=== PATIENT | female | born 2000 | race African-American/Black ===

== ENCOUNTER 2025-04-08 08:03 | Inpatient (IN) ==
[2025-04-08] MEDS ORDERED: OXYTOCIN 30 UNITS/NSS 30 UNITS/500 ML BAG IV PRN ×2 (08:19→19:51)
[2025-04-08] MEDS ORDERED: ACETAMINOPHEN 325 MG TAB PO PRN (08:19)
[2025-04-08] MEDS ORDERED: LIDOCAINE 1% LOCAL 20 ML VIAL INFIL PRN (08:19)
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
[2025-04-08] MEDS: PENICILLIN GK 6 MU in DEXTROSE 5% 250 ML IV STA (08:59)
[2025-04-08] MEDS: OXYTOCIN 30 UNITS/NSS 30 UNITS/500 ML BAG IV PRN (08:59)
[2025-04-08] MEDS: LACTATED RINGER'S 1,000 ML IV PRN (08:59)
[2025-04-08 09:34] LABS: Hematocrit (blood only) 32.1 % (37.0-47.0); Hemoglobin 10.6 g/dl (12.0-16.0); Mean Corpuscular Hemoglobin 28.0 pg (25.0-34.0); Mean Corpuscular Volume 84.7 fL (80.0-100.0); Platelet Count 254 K/uL (130-400); RDW Standard Deviation 43.7 fL (36.4-46.3); Red Blood Count 3.79 M/uL (4.20-5.40); White Blood Count 8.10 K/ul (4.8-10.8)
[2025-04-08] MEDS ORDERED: LIDOCAINE 2% MPF LOCAL 5 ML VIAL EPI PRN (09:54)
[2025-04-08] MEDS ORDERED: ONDANSETRON INJ 2 MG/ML 2 ML VIAL IV PRN (09:54)
[2025-04-08] MEDS ORDERED: NALBUPHINE HCL INJ 10 MG/ML AMP IV PRN (09:54)
[2025-04-08] MEDS ORDERED: NALOXONE HCL 0.4 MG/1 ML VIAL/CARP IV PRN (09:54)
[2025-04-08] MEDS ORDERED: NALOXONE HCL 1 MG in SODIUM CHLORIDE 0.9% 1,000 ML IV PRN (09:54)
[2025-04-08] MEDS ORDERED: PROMETHAZINE 6.25 MG/50.25 ML BAG IV PRN (09:54)
[2025-04-08] MEDS ORDERED: BUPIVACAINE 0.25% PF 30 ML VIAL EPI PRN (09:54)
[2025-04-08] MEDS ORDERED: SODIUM CHLORIDE 0.9% PF INJ 10 ML VIAL EPI PRN (09:54)
[2025-04-08] MEDS ORDERED: ROPIVACAINE 0.5% PF 5 MG/ML 20 ML VIAL EPI PRN (09:54)
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
[2025-04-08 10:08] LABS: Amphetamines+Metham, Urine Neg (Neg); MDMA (Ecstacy), Urine Neg (Neg); Marijuana, Urine Pos (Neg)
[2025-04-08] MEDS: fentANYL 2 MCG/ML BUPIVacaine 0.125%-NSS 100ML BAG ONE (10:18)
[2025-04-08] MEDS: LIDOCAINE 2%/EPINEPHRINE 1:200,000 20 ML PF ONE (10:19)
[2025-04-08] MEDS: BUPIVACAINE 0.25% PF 30 ML VIAL ONE (10:19)
[2025-04-08] MEDS: SODIUM CHLORIDE 0.9% PF INJ 10 ML VIAL ONE (10:19)
[2025-04-08 10:22] LABS: Treponema pallidum RflxConfirm Negative (Negative)
[2025-04-08 10:27] LABS: Hep C Ab Rflx HepCQuant RNA Negative (Negative)
[2025-04-08] MEDS: BUPIVACAINE 0.25% PF 30 ML VIAL EPI STA (10:33)
[2025-04-08] MEDS: SODIUM CHLORIDE 0.9% PF INJ 10 ML VIAL EPI STA (10:33)
[2025-04-08] MEDS: LIDOCAINE 2%/EPINEPHRINE 1:200,000 20 ML PF EPI STA (10:33)
--- NOTE | 2025-04-08 11:16 | Labor Progress Brief Note ---
Date of Service April 08, 2025 Subjective comfortable with epidural, still anxious with exam Assessment & Plan (1) Poor patient attendance of care: (2) with 41 completed weeks gestation: Plan coontinue current management. fetus category one. monitor for arom Admission and Anticipated Discharge Date Admission Date: April 08, 2025 Physical Exam Physical Exam: cx--/-2 attempt at arom, not sure successful toco--q2-3min efm--130s wtih mod variability, accels to 170s, no decels Results & Data Vital Signs (Past 12 Hours) Vital Signs Temp Pulse Resp BP Pulse Ox Pulse Ox O2 Del Method 04/08/25 11:12 98 04/08/25 11:12 81 04/08/25 11:12 82 93 04/08/25 11:11 83 132/82 04/08/25 11:07 83 98 04/08/25 11:06 87 92 04/08/25 11:02 88 100 04/08/25 11:00 86 92 04/08/25 10:57 89 100 04/08/25 10:54 91 H 88 L 04/08/25 10:52 90 74 L 04/08/25 10:48 88 92 04/08/25 10:47 94 H 85 L 04/08/25 10:42 92 04/08/25 10:42 94 H 04/08/25 10:42 97 H 116/66 93 04/08/25 10:37 91 04/08/25 10:37 90 04/08/25 10:37 83 87 L 04/08/25 10:32 81 100 04/08/25 10:30 18 04/08/25 10:30 18 04/08/25 10:30 18 04/08/25 10:27 82 100 04/08/25 10:26 88 117/56 L 04/08/25 10:25 84 122/58 L 04/08/25 10:22 88 109/63 100 04/08/25 10:20 90 114/65 04/08/25 10:19 83 117/66 88 L 04/08/25 10:18 100 Room Air 04/08/25 10:17 93 H 114/56 L 100 04/08/25 09:55 86 113/62 04/08/25 08:14 36.7 C 18 04/08/25 08:12 36.7 C 18 04/08/25 08:12 36.7 C 94 H 18 114/71 Coding Level of Care Code None Diagnoses Poor patient attendance of care O09.30 with 41 completed weeks gestation O48.0; Z3A.41
[2025-04-08] MEDS: PENICILLIN GK 3 MU in DEXTROSE 5% 100 ML IV PRN (12:41)
--- NOTE | 2025-04-08 15:38 | Labor Progress Brief Note ---
Date of Service April 08, 2025 Subjective comfortable Assessment & Plan (1) with 41 completed weeks gestation: (2) Group B streptococcal infection during : Plan continue current management. fetus reassuring category two. Admission and Anticipated Discharge Date Admission Date: April 08, 2025 Physical Exam Physical Exam: cx--4/100/-2 toco--q1-2 min efm--130s with mod variability, accels present, early/variable with contractions. Results & Data Vital Signs (Past 12 Hours) Vital Signs Temp Pulse Resp BP Pulse Ox Pulse Ox O2 Del Method 04/08/25 15:33 77 93 04/08/25 15:31 76 100 04/08/25 15:27 81 124/61 04/08/25 15:14 84 88 L 04/08/25 15:11 83 117/62 04/08/25 15:10 89 100 04/08/25 15:05 81 96 04/08/25 15:00 80 100 04/08/25 14:58 75 93 04/08/25 14:55 76 97 04/08/25 14:51 72 94 04/08/25 14:50 74 99 04/08/25 14:46 78 88 L 04/08/25 14:45 83 100 04/08/25 14:42 91 H 134/71 04/08/25 14:40 79 99 04/08/25 14:34 71 89 L 04/08/25 14:32 76 100 04/08/25 14:30 18 04/08/25 14:30 18 04/08/25 14:27 87 86 L 04/08/25 14:22 94 H 89 L 04/08/25 14:20 88 100 04/08/25 14:15 80 95 04/08/25 14:12 75 124/63 94 04/08/25 14:10 88 100 04/08/25 14:00 36.7 C 04/08/25 13:58 79 65 L 04/08/25 13:57 83 128/76 04/08/25 13:54 80 90 04/08/25 13:53 81 98 04/08/25 13:44 85 89 L 04/08/25 13:42 95 H 119/61 04/08/25 13:41 75 100 04/08/25 13:38 88 92 04/08/25 13:36 81 100 04/08/25 13:32 87 92 04/08/25 13:31 89 98 04/08/25 13:30 18 04/08/25 13:30 18 04/08/25 13:27 93 H 112/77 04/08/25 13:23 85 83 L 04/08/25 13:19 83 93 04/08/25 13:15 82 84 L 04/08/25 13:12 83 43 L 04/08/25 13:11 104 H 111/73 04/08/25 13:08 78 97 04/08/25 13:07 84 51 L 04/08/25 13:02 100 04/08/25 13:02 90 04/08/25 13:02 86 93 04/08/25 12:57 97 04/08/25 12:57 78 04/08/25 12:57 80 108/72 94 04/08/25 12:52 78 92 04/08/25 12:47 83 77 L 04/08/25 12:45 86 83 L 04/08/25 12:42 69 100 04/08/25 12:41 85 107/62 04/08/25 12:37 82 100 04/08/25 12:36 85 43 L 04/08/25 12:32 82 76 L 04/08/25 12:30 18 04/08/25 12:30 18 04/08/25 12:27 100 04/08/25 12:27 79 04/08/25 12:27 80 107/56 L 04/08/25 12:26 81 89 L 04/08/25 12:22 90 56 L 04/08/25 12:21 92 H 93 04/08/25 12:17 87 100 04/08/25 12:12 84 92 04/08/25 12:07 83 100 04/08/25 12:04 103 H 91 04/08/25 12:02 89 100 04/08/25 11:57 87 100 04/08/25 11:56 83 122/63 04/08/25 11:52 85 100 04/08/25 11:51 82 90 04/08/25 11:47 82 100 04/08/25 11:45 36.8 C 04/08/25 11:43 93 H 115/56 L 04/08/25 11:42 85 100 04/08/25 11:40 85 92 04/08/25 11:37 87 94 04/08/25 11:34 90 93 04/08/25 11:32 91 H 100 04/08/25 11:30 18 04/08/25 11:30 18 04/08/25 11:29 92 H 91 04/08/25 11:27 87 97 04/08/25 11:22 77 100 04/08/25 11:19 86 93 04/08/25 11:17 92 H 100 04/08/25 11:12 98 04/08/25 11:12 81 04/08/25 11:12 82 93 04/08/25 11:11 83 132/82 04/08/25 11:07 83 98 04/08/25 11:06 87 92 04/08/25 11:02 88 100 04/08/25 11:00 86 92 04/08/25 10:57 89 100 04/08/25 10:54 91 H 88 L 04/08/25 10:52 90 74 L 04/08/25 10:48 88 92 04/08/25 10:47 94 H 85 L 04/08/25 10:42 92 04/08/25 10:42 94 H 04/08/25 10:42 97 H 116/66 93 04/08/25 10:37 91 04/08/25 10:37 90 04/08/25 10:37 83 87 L 04/08/25 10:32 81 100 04/08/25 10:30 18 04/08/25 10:30 18 04/08/25 10:30 18 04/08/25 10:27 82 100 04/08/25 10:26 88 117/56 L 04/08/25 10:25 84 122/58 L 04/08/25 10:22 88 109/63 100 04/08/25 10:20 90 114/65 04/08/25 10:19 83 117/66 88 L 04/08/25 10:18 100 Room Air 04/08/25 10:17 93 H 114/56 L 100 04/08/25 09:55 86 113/62 04/08/25 08:14 36.7 C 18 04/08/25 08:12 36.7 C 18 04/08/25 08:12 36.7 C 94 H 18 114/71 Coding Level of Care Code None Diagnoses with 41 completed weeks gestation O48.0; Z3A.41 Group B streptococcal infection during O98.819; B95.1
[2025-04-08] MEDS: diphenhydrAMINE 50 MG/ML VIAL IV PRN (17:48)
[2025-04-08] MEDS: fentANYL 2 MCG/ML BUPIVacaine 0.125%-NSS 100ML BAG EPI PRN (19:00)
--- NOTE | 2025-04-08 19:42 | Anesthesia Procedure Note ---
Date of Service April 08, 2025 Anesthesia Post Epidural Note Vital Signs Vital Signs: Temp Pulse Resp BP Pulse Ox O2 Del Method 36.8 C 77 18 128/75 87 L Room Air 04/08/25 17:45 04/08/25 19:17 04/08/25 17:45 04/08/25 19:17 04/08/25 18:28 04/08/25 10:18 Notes Mental Status: alert / awake / arousable Nausea / Vomiting: adequately controlled Pain: adequately controlled Airway Patency, RR, SpO2: stable & adequate BP & HR: stable & adequate Hydration State: stable & adequate Neuraxial Anesthesia: was administered and sensory block is resolving Anesthetic Complications: no major complications apparent and Pt Satisfied with anesthetic care Epidural: Removed without complications and With tip intact
[2025-04-08] MEDS ORDERED: BENZOCAINE 20% SPRY 85 APPLN/85 GM CAN EXT PRN (19:51)
[2025-04-08] MEDS ORDERED: DIPHTHER/TETAN/PERTUS Vaccine (Tdap, Adol/Adult) 0.5mL IM ONE (19:51)
[2025-04-08] MEDS ORDERED: HYDROCORTISONE ACETATE 25 MG SUPP PR PRN (19:51)
--- NOTE | 2025-04-08 19:51 | Delivery Summary ---
Vaginal Delivery Summary Date of Service April 08, 2025 Vaginal Delivery Summary Pre-operative Diagnosis: at 41 weeks poor pnc MJ use Post-operative Diagnosis: same Procedure: pitocin iol epidural arom QBL: 105cc Anesthesia: epidural Procedure: Patient presented for iol. Got pitocin, epidural and then arom for clear fluid. The patient progressed to c/c/+2. The patient pushed to deliver a viable female in emma position. The rest of the infant was then delivered without difficulty through a nuchal cord. The baby was vigorous. The nose and mouth were again bulb suctioned and the infant was placed in the maternal abdomen for drying and attention. Cord was clamped and cut at one minute of life. Cord blood and segment obtained. Placenta delivered spontaneous, intact with a three vessel cord. Cervix/sulci/rectum/perineum were intact. Hemostasis obtained with dilute pitocin and fundal massage. Apgars were 8/9. Mother and baby doing well at the end of the delivery. [facility] Vaginal Delivery Charge Delivery Type Details:
[2025-04-08] MEDS: IBUPROFEN 600 MG TAB PO ONE (19:52)
[2025-04-08] MEDS: DOCUSATE SODIUM 100 MG CAP PO SCH (20:45)
[2025-04-08] MEDS: ACETAMINOPHEN 325 MG TAB PO PRN (22:57)
[2025-04-09] MEDS: IBUPROFEN 600 MG TAB PO PRN (01:51)
[2025-04-09 03:37] VITALS: RESP 18
--- NOTE | 2025-04-09 06:29 | Obstetrical Progress Note ---
Date of Service April 09, 2025 Assessment & Plan (1) care and examination: Plan: 24yo post- day 1 s/p Fells well today. Continue post- care Encourage ambulation Pain controlled with Ibuprofen, Tylenol Vital Signs stable, will follow AM labs Hopeful discharge home today, follow up with OB provider in 6 weeks. Admission and Anticipated Discharge Date Admission Date: April 08, 2025 Supervising Physician Co-Signing Physician Notes Resident Physician Supervision Note: I interviewed and examined the patient. Discussed with Dr. Mchugh and agree with findings and plan as documented in the note. Any exceptions or clarifications are listed here: Doing well. Wants d/c stefanie. Recommend wait til 24. Understands cannot leave until seen by case management for adoption issues. Documented By: Katie Fuller MD, FACOG Subjective 24yo post- day 1 s/p Ambulation: Ambulating normally Voiding: No voiding problems Passing Gas:: Yes Diet Tolerance:: regular diet Lochia:: Small Current Pain Level: 2/10 controlled with Tylenol, Ibuprofen Resting comfortably this AM in NAD. Denies WILLARD, CP, SOB, N/V/D, LE pain/swelling. Physical Exam Physical Exam: General: patient resting comfortably, NAD, non-toxic in appearance, answers questions appropriately Skin: warm, dry, intact Heart: S1/S2 heard, regular, no m/r/g Lungs: equal air entry bilaterally, no rales/rhonchi/wheezes Abd: Normoactive BS, soft, NT/ND, uterine fundus firm below umbilicus Ext: warm, no clubbing/cyanosis or edema, Carlo's neg Neuro: nonfocal, patient AAOx4, speech intact, no facial droop, moving all extremities on command Results & Data Vital Signs (Past 12 Hours) Vital Signs Temp Pulse Pulse Resp BP BP Pulse Ox 04/09/25 03:35 36.6 C 98 H 18 104/53 L 99 04/08/25 23:00 37.0 C 59 L 16 124/77 100 04/08/25 22:03 71 113/60 04/08/25 21:50 18 04/08/25 21:25 64 127/59 L 04/08/25 21:20 18 04/08/25 20:50 16 04/08/25 20:48 36 L 105/61 04/08/25 20:35 18 04/08/25 20:33 71 117/66 04/08/25 20:21 73 121/59 L 04/08/25 20:20 18 04/08/25 20:19 141 H 191/69 H 04/08/25 20:05 18 04/08/25 20:03 67 129/83 04/08/25 19:50 18 04/08/25 19:49 67 120/74 04/08/25 19:43 70 117/72 04/08/25 19:17 77 128/75 04/08/25 18:42 69 175/78 H O2 Del Method 04/09/25 03:35 Room Air 04/08/25 23:00 Room Air 04/08/25 22:03 04/08/25 21:50 04/08/25 21:25 04/08/25 21:20 04/08/25 20:50 04/08/25 20:48 04/08/25 20:35 04/08/25 20:33 04/08/25 20:21 04/08/25 20:20 04/08/25 20:19 04/08/25 20:05 04/08/25 20:03 04/08/25 19:50 04/08/25 19:49 04/08/25 19:43 04/08/25 19:17 04/08/25 18:42 Resident Activity Tracking Resident Involvement: Resident Care Provided Care Provided: OB Delivery
[2025-04-09 07:18] LABS: Hematocrit (blood only) 30.1 % (37.0-47.0); Hemoglobin 9.7 g/dl (12.0-16.0)
[2025-04-09] MEDS: PRENATAL VITAMIN 1 TAB PO SCH (08:18)
[2025-04-09] MEDS: SERTRALINE HCL 50 MG TABLET PO SCH (09:06)
[2025-04-09 18:49] VITALS: BP 118/69; PULSE 60; TEMP 99.3; O2SAT 100
[2025-04-12 16:42] LABS: Marijuana Quant, GCMS Urine 267 ng/mL (<5)
== END 2025-04-09 19:00 | disposition home or self-care (01) | DRG 806 ==
LOC: 4S1 08:03 → 4E2 22:45